=== PATIENT | female | born 1960 | race Caucasian/White ===

== ENCOUNTER 2018-10-05 17:01 | Inpatient (IN) | payer MEDICARE, MEDICAID ==
[~2018-10-05] VITALS: Ht 162.6 cm; Wt 83.9 kg
[2018-10-05] MEDS ORDERED: MAGN400O6 PO (17:21)
[2018-10-05] MEDS ORDERED: MAG30ORA PO (17:21)
[2018-10-05] MEDS ORDERED: SENN-168 PO (17:21)
[2018-10-05] MEDS ORDERED: LEVO175T7 PO (17:21)
[2018-10-05] MEDS ORDERED: NA P133E RC (17:21)
[2018-10-05] MEDS ORDERED: BISA10SU12 RC (17:21)
[2018-10-05] MEDS ORDERED: IBUP-1955 PO (17:21)
[2018-10-05] MEDS ORDERED: ACET325T53 PO (17:21)
[2018-10-05] MEDS ORDERED: DOCU100C36 PO (17:21)
[2018-10-05] MEDS ORDERED: MULT1TAB73 PO (17:21)
[2018-10-05] MEDS ORDERED: [UNRECOGNIZED DRUG - CODE] PO (17:21)
[2018-10-05 17:26] LABS: BASOPHILS # (AUTO) 0.1 K/uL (0.0-8.0); BASOPHILS % (AUTO) 1.3 % (0.0-2.0); EOSINOPHILS # (AUTO) 0.3 K/uL (0.0-0.7); EOSINOPHILS % (AUTO) 2.5 % (0.0-7.0); HEMATOCRIT 39.7 % (31.2-41.9); HEMOGLOBIN 13.5 g/dL (10.9-14.3); LYMPHOCYTES # (AUTO) 3.5 K/uL (20.0-40.0); LYMPHOCYTES % (AUTO) 32.2 % (20.5-51.5); MEAN CORPUSCULAR HEMOGLOBIN 32.1 uug (24.7-32.8); MEAN CORPUSCULAR HGB CONC 34 g/dL (32.3-35.6); MEAN CORPUSCULAR VOLUME 94.5 fL (75.5-95.3); MONOCYTES % (AUTO) 9.6 % (0.0-11.0); NEUTROPHILS # (AUTO) 5.9 K/uL (1.8-8.9); NEUTROPHILS % (AUTO) 54.4 % (38.5-71.5); PLATELET COUNT (AUTO) 287 K/uL (179-408); RED BLOOD CELL COUNT(AUTO) 4.21 MIL/uL (3.63-4.92); WHITE BLOOD COUNT (AUTO) 10.9 K/uL (3.8-11.8)
[2018-10-05 17:29] LABS: CARBON DIOXIDE 24 mmol/L (21-32); CHLORIDE 100 mmol/L (98-107); GLUCOSE 110 mg/dL (74-106); POTASSIUM 4.1 mmol/L (3.5-5.1); UREA NITROGEN, BLOOD 19 mg/dL (7-18)
[2018-10-05 17:30] LABS: *BILIRUBIN,URIN NEGATIVE (NEGATIVE); *CLARITY,URINE CLEAR (CLEAR); *COLOR,URINE YELLOW (YELLOW); *KETONES,URINE NEGATIVE (NEGATIVE); *UROBILINOGEN,URINE 0.2 E.U./dl (NORMAL); LEUKOCYTE ESTERASE ,URINE NEGATIVE (NEGATIVE); NITRITE, URINE NEGATIVE (NEGATIVE); UGLUCOSE NEGATIVE (NEGATIVE)
[2018-10-05 17:34] LABS: *BLOOD, URINE TRACE (NEGATIVE)
[2018-10-05 17:35] LABS: SQUAMOUS EPITHELIAL CELL,UR MODERATE /HPF (NONE SEEN)
[2018-10-05 17:41] LABS: ETHANOL < 3 MG/DL (0-0)
[2018-10-05 17:43] LABS: ALANINE AMINOTRANSFERASE 60 U/L (14-59); ALKALINE PHOSPHATASE 62 U/L (50-136); ASPARTATE AMINOTRANSFERASE 30 U/L (15-37); BILIRUBIN,DIRECT 0.1 mg/dL (0.0-0.2); BILIRUBIN,TOTAL 0.2 mg/dL (0.2-1.0)
[2018-10-05 17:44] LABS: ACETAMINOPHEN < 2.0 ug/mL (10-30)
[2018-10-05 17:44] LABS: *AMPHETAMINE, URINE NEGATIVE (NEGATIVE); *BARBITURATE, URINE NEGATIVE (NEGATIVE); *CANNABINOID, URINE NEGATIVE (NEGATIVE); *COCCAINE, URINE NEGATIVE (NEGATIVE); *OPIATE, URINE NEGATIVE (NEGATIVE); *PHENCYCLIDINE SCREEN,URINE NEGATIVE (NEGATIVE)
[2018-10-05 18:10] VITALS: BP 145/92
[2018-10-05] MEDS ORDERED: LORAZEPAM 0.5 MG TABLET PO PRN (18:30)
[2018-10-05] MEDS: QUETIAPINE FUMARATE 200 MG TABLET PO SCH (18:30)
[2018-10-05] MEDS ORDERED: MAGNESIUM HYDROXIDE 30 ML LIQUID UDC PO PRN ×2 (18:30→19:00)
[2018-10-05] MEDS ORDERED: MAG HYDROX/AL HYDROX/SIMETH 30 ML LIQUID UDC PO PRN ×2 (18:30→19:00)
[2018-10-05] MEDS ORDERED: ACETAMINOPHEN 325 MG TABLET PO PRN ×2 (19:00)
[2018-10-05 20:08] VITALS: BP 139/72
[2018-10-05] MEDS: SENNOSIDES 1 TABLET PO SCH (21:00)
[2018-10-05] MEDS: DIVALPROEX 500 MG TABLET.DR PO SCH (21:00)
[2018-10-06] MEDS: LEVOTHYROXINE SODIUM 175 MCG TABLET PO SCH (07:00)
[2018-10-06 07:30] VITALS: BP 116/70
[2018-10-06] MEDS ORDERED: Medication Not On Formulary EA (Multivitamins (Multivitamin) 1 EACH) PO SCH (09:00)
[2018-10-06] MEDS ORDERED: CALCIUM CARBONATE PO SCH (09:00)
[2018-10-06] MEDS: DIVALPROEX 500 MG TABLET.DR PO SCH ×3 (09:00→21:00)
[2018-10-06] MEDS: MULTIVITAMINS,THERAPEUTIC TABLET PO SCH (09:00)
[2018-10-06] MEDS: DOCUSATE SODIUM 100 MG CAPSULE PO SCH ×3 (09:00→17:00)
[2018-10-06] MEDS ORDERED: [UNRECOGNIZED DRUG - OTHER] PO SCH (09:00)
[2018-10-06] MEDS: QUETIAPINE FUMARATE 200 MG TABLET PO SCH ×3 (09:00→17:05)
[2018-10-06] MEDS ORDERED: VITAMIN D3 PO SCH (09:00)
[2018-10-06] MEDS: CALCIUM CARB/VITAMIN D 500MG-200UNITS TABLET PO SCH ×4 (09:00→17:06)
[2018-10-06] MEDS: LORAZEPAM 1 MG TABLET PO PRN ×2 (11:06→13:20)
[2018-10-06] MEDS: ACETAMINOPHEN 325 MG TABLET PO PRN ×2 (15:18→23:50)
[2018-10-06 16:00] VITALS: BP 130/69
[2018-10-06] MEDS: SENNOSIDES 1 TABLET PO SCH (21:00)
[2018-10-07] MEDS: LEVOTHYROXINE SODIUM 175 MCG TABLET PO SCH (07:00)
[2018-10-07 07:56] VITALS: BP 110/65
[2018-10-07] MEDS: DIVALPROEX 500 MG TABLET.DR PO SCH ×3 (08:34→20:58)
[2018-10-07] MEDS: QUETIAPINE FUMARATE 200 MG TABLET PO SCH ×2 (08:34→13:00)
[2018-10-07] MEDS: CALCIUM CARB/VITAMIN D 500MG-200UNITS TABLET PO SCH ×3 (08:41→16:58)
[2018-10-07] MEDS: MULTIVITAMINS,THERAPEUTIC TABLET PO SCH (08:41)
[2018-10-07] MEDS: DOCUSATE SODIUM 100 MG CAPSULE PO SCH ×2 (08:41→16:58)
[2018-10-07] MEDS ORDERED: BENZTROPINE MESYLATE 1 MG TABLET PO PRN ×2 (15:30→15:45)
[2018-10-07] MEDS ORDERED: HALOPERIDOL LACTATE 5 MG/1 ML VIAL IM PRN (15:30)
[2018-10-07 16:12] VITALS: BP 120/71
[2018-10-07 19:42] VITALS: BP 116/76
[2018-10-07] MEDS: HALOPERIDOL 5 MG TABLET PO SCH (20:56)
[2018-10-07] MEDS: BENZTROPINE MESYLATE 0.5 MG TABLET PO SCH (20:58)
[2018-10-07] MEDS: SENNOSIDES 1 TABLET PO SCH (21:00)
[2018-10-08] MEDS: TEMAZEPAM 7.5 MG CAPSULE PO PRN (00:16)
[2018-10-08] MEDS: LEVOTHYROXINE SODIUM 175 MCG TABLET PO SCH (06:31)
[2018-10-08 08:20] VITALS: BP 118/70
[2018-10-08] MEDS: HALOPERIDOL 5 MG TABLET PO SCH ×2 (08:28→20:00)
[2018-10-08] MEDS: DOCUSATE SODIUM 100 MG CAPSULE PO SCH ×2 (08:28→16:22)
[2018-10-08] MEDS: DIVALPROEX 500 MG TABLET.DR PO SCH ×4 (08:28→19:58)
[2018-10-08] MEDS: CALCIUM CARB/VITAMIN D 500MG-200UNITS TABLET PO SCH ×3 (08:28→16:22)
[2018-10-08] MEDS: BENZTROPINE MESYLATE 0.5 MG TABLET PO SCH ×2 (08:28→19:59)
[2018-10-08] MEDS: MULTIVITAMINS,THERAPEUTIC TABLET PO SCH (08:29)
[2018-10-08] MEDS: ACETAMINOPHEN 325 MG TABLET PO PRN ×2 (10:52→19:58)
[2018-10-08 16:07] VITALS: BP 117/63
[2018-10-08] MEDS: LORAZEPAM 1 MG TABLET PO PRN (18:40)
[2018-10-08 19:36] VITALS: BP 127/71
[2018-10-08] MEDS: SENNOSIDES 1 TABLET PO SCH (20:00)
[2018-10-09] MEDS: LEVOTHYROXINE SODIUM 175 MCG TABLET PO SCH (06:00)
[2018-10-09 07:30] VITALS: BP 122/72
[2018-10-09] MEDS: BENZTROPINE MESYLATE 0.5 MG TABLET PO SCH ×2 (08:13→20:40)
[2018-10-09] MEDS: DIVALPROEX 500 MG TABLET.DR PO SCH ×3 (08:13→20:40)
[2018-10-09] MEDS: CALCIUM CARB/VITAMIN D 500MG-200UNITS TABLET PO SCH ×3 (08:13→16:25)
[2018-10-09] MEDS: DOCUSATE SODIUM 100 MG CAPSULE PO SCH ×2 (08:13→16:24)
[2018-10-09] MEDS: MULTIVITAMINS,THERAPEUTIC TABLET PO SCH (08:13)
[2018-10-09] MEDS: HALOPERIDOL 5 MG TABLET PO SCH ×2 (08:13→20:39)
[2018-10-09] MEDS: ACETAMINOPHEN 325 MG TABLET PO PRN ×2 (09:05→20:40)
[2018-10-09 16:00] VITALS: BP 110/69
[2018-10-09 19:58] VITALS: BP 123/73
[2018-10-09] MEDS: SENNOSIDES 1 TABLET PO SCH (20:40)
[2018-10-09] MEDS: TEMAZEPAM 7.5 MG CAPSULE PO PRN (23:02)
[2018-10-10] MEDS: LEVOTHYROXINE SODIUM 175 MCG TABLET PO SCH (06:03)
[2018-10-10 07:30] VITALS: BP 108/71
[2018-10-10] MEDS: MULTIVITAMINS,THERAPEUTIC TABLET PO SCH ×2 (08:21→18:39)
[2018-10-10] MEDS: BENZTROPINE MESYLATE 0.5 MG TABLET PO SCH ×2 (08:21→20:18)
[2018-10-10] MEDS: HALOPERIDOL 5 MG TABLET PO SCH ×2 (08:21→20:18)
[2018-10-10] MEDS: CALCIUM CARB/VITAMIN D 500MG-200UNITS TABLET PO SCH ×4 (08:21→18:39)
[2018-10-10] MEDS: DOCUSATE SODIUM 100 MG CAPSULE PO SCH ×2 (08:21→16:18)
[2018-10-10] MEDS: DIVALPROEX 500 MG TABLET.DR PO SCH ×3 (08:21→20:19)
[2018-10-10] MEDS: LORAZEPAM 1 MG TABLET PO PRN (10:24)
[2018-10-10 15:07] VITALS: BP 112/65
[2018-10-10] MEDS: ACETAMINOPHEN 325 MG TABLET PO PRN (16:18)
[2018-10-10] MEDS ORDERED: HALOPERIDOL DECANOATE 50 MG/1 ML AMPUL IM ONE (17:45)
[2018-10-10 20:05] VITALS: BP 129/80
[2018-10-10] MEDS: SENNOSIDES 1 TABLET PO SCH (20:19)
[2018-10-10] MEDS: TEMAZEPAM 7.5 MG CAPSULE PO PRN (22:33)
[2018-10-11] MEDS: LEVOTHYROXINE SODIUM 175 MCG TABLET PO SCH (06:14)
[2018-10-11 07:30] VITALS: BP 113/76
[2018-10-11] MEDS: DIVALPROEX 500 MG TABLET.DR PO SCH ×3 (08:18→20:09)
[2018-10-11] MEDS: BENZTROPINE MESYLATE 0.5 MG TABLET PO SCH ×2 (08:18→20:10)
[2018-10-11] MEDS: HALOPERIDOL 5 MG TABLET PO SCH ×2 (08:18→20:09)
[2018-10-11] MEDS: MULTIVITAMINS,THERAPEUTIC TABLET PO SCH (08:19)
[2018-10-11] MEDS: DOCUSATE SODIUM 100 MG CAPSULE PO SCH ×2 (08:19→17:00)
[2018-10-11] MEDS: CALCIUM CARB/VITAMIN D 500MG-200UNITS TABLET PO SCH ×3 (08:19→17:00)
[2018-10-11] MEDS: ACETAMINOPHEN 325 MG TABLET PO PRN ×2 (14:27→20:25)
[2018-10-11 15:25] VITALS: BP 137/79
[2018-10-11 19:36] VITALS: BP 133/78
[2018-10-11] MEDS: SENNOSIDES 1 TABLET PO SCH (20:14)
[2018-10-11] MEDS: TEMAZEPAM 7.5 MG CAPSULE PO PRN (22:34)
[2018-10-12] MEDS: LORAZEPAM 1 MG TABLET PO PRN ×2 (01:08→08:19)
[2018-10-12] MEDS: LEVOTHYROXINE SODIUM 175 MCG TABLET PO SCH (06:14)
[2018-10-12 07:44] VITALS: BP 104/64
[2018-10-12] MEDS: HALOPERIDOL 5 MG TABLET PO SCH ×2 (08:19→20:37)
[2018-10-12] MEDS: MULTIVITAMINS,THERAPEUTIC TABLET PO SCH (08:20)
[2018-10-12] MEDS: CALCIUM CARB/VITAMIN D 500MG-200UNITS TABLET PO SCH ×3 (08:20→17:00)
[2018-10-12] MEDS: DIVALPROEX 500 MG TABLET.DR PO SCH ×3 (08:20→20:37)
[2018-10-12] MEDS: BENZTROPINE MESYLATE 0.5 MG TABLET PO SCH ×2 (08:20→20:37)
[2018-10-12] MEDS: DOCUSATE SODIUM 100 MG CAPSULE PO SCH ×2 (08:25→17:00)
[2018-10-12] MEDS: ACETAMINOPHEN 325 MG TABLET PO PRN (10:45)
[2018-10-12 15:24] VITALS: BP 97/60
[2018-10-12] MEDS: LOPERAMIDE HCL 2 MG CAPSULE PO PRN (18:58)
[2018-10-12 19:44] VITALS: BP 118/70
[2018-10-12] MEDS: SENNOSIDES 1 TABLET PO SCH (20:42)
[2018-10-12] MEDS: TEMAZEPAM 7.5 MG CAPSULE PO PRN (22:38)
[2018-10-13] MEDS: LEVOTHYROXINE SODIUM 175 MCG TABLET PO SCH (06:27)
[2018-10-13 07:30] VITALS: BP 128/73
[2018-10-13] MEDS: MULTIVITAMINS,THERAPEUTIC TABLET PO SCH (08:22)
[2018-10-13] MEDS: DOCUSATE SODIUM 100 MG CAPSULE PO SCH ×4 (08:23→16:12)
[2018-10-13] MEDS: HALOPERIDOL 5 MG TABLET PO SCH ×2 (08:23→21:01)
[2018-10-13] MEDS: CALCIUM CARB/VITAMIN D 500MG-200UNITS TABLET PO SCH ×3 (08:23→16:12)
[2018-10-13] MEDS: DIVALPROEX 500 MG TABLET.DR PO SCH ×4 (08:23→21:01)
[2018-10-13] MEDS: BENZTROPINE MESYLATE 0.5 MG TABLET PO SCH ×2 (08:23→21:01)
[2018-10-13] MEDS: ACETAMINOPHEN 325 MG TABLET PO PRN ×2 (11:18→21:51)
[2018-10-13] MEDS: LORAZEPAM 1 MG TABLET PO PRN (13:33)
[2018-10-13 16:00] VITALS: BP 107/74
[2018-10-13 20:08] VITALS: BP 117/69
[2018-10-13] MEDS: SENNOSIDES 1 TABLET PO SCH ×2 (21:00→21:01)
[2018-10-13] MEDS: TEMAZEPAM 7.5 MG CAPSULE PO PRN (21:51)
[2018-10-14] MEDS: LORAZEPAM 1 MG TABLET PO PRN (04:08)
[2018-10-14] MEDS: LEVOTHYROXINE SODIUM 175 MCG TABLET PO SCH (06:38)
[2018-10-14 07:30] VITALS: BP 108/71
[2018-10-14] MEDS: CALCIUM CARB/VITAMIN D 500MG-200UNITS TABLET PO SCH ×2 (08:26→12:42)
[2018-10-14] MEDS: HALOPERIDOL 5 MG TABLET PO SCH (08:26)
[2018-10-14] MEDS: MULTIVITAMINS,THERAPEUTIC TABLET PO SCH (08:26)
[2018-10-14] MEDS: DIVALPROEX 500 MG TABLET.DR PO SCH ×2 (08:27→12:42)
[2018-10-14] MEDS: BENZTROPINE MESYLATE 0.5 MG TABLET PO SCH (08:28)
[2018-10-14] MEDS: DOCUSATE SODIUM 100 MG CAPSULE PO SCH (08:32)
[2018-10-14] MEDS: LOPERAMIDE HCL 2 MG CAPSULE PO PRN (10:43)
[2018-11-12] MEDS ORDERED: HALOPERIDOL DECANOATE 50 MG/1 ML AMPUL IM ONE (09:00)
== END 2018-10-14 15:00 | DRG 885 ==
LOC: ER 17:01 → GPS 17:50
PROVIDERS: ADMIT Psychiatry & Neurology Psychiatry; ATTEND Nurse Practitioner Acute Care
DX: F25.9 Schizoaffective disorder, unspecified (principal); J98.11 Atelectasis; J44.9 Chronic obstructive pulmonary disease, unspecified; E03.9 Hypothyroidism, unspecified; G89.4 Chronic pain syndrome; D63.8 Anemia in other chronic diseases classified elsewhere; E86.0 Dehydration; M19.90 Unspecified osteoarthritis, unspecified site; F20.0 Paranoid schizophrenia; F10.11 Alcohol abuse, in remission; Y90.0 Blood alcohol level of less than 20 mg/100 ml; R73.9 Hyperglycemia, unspecified
CPT/HCPCS: 36415; 71045; 80307; 85025; 87086; 93005; A4663; G0480; G0480-TC; J1630; J1631